=== PATIENT | female | born 1995 | race Caucasian/White ===

== ENCOUNTER 2017-03-30 15:49 | Emergency (ER) | payer MEDICAID ==
[~2017-03-30] VITALS: Ht 175.3 cm; Wt 54.4 kg
[~2017-03-30 15:49] MED LIST: AMOXICILLIN 50500 MG PO; AUGMENTIN 875-1 EACH PO; DICLEGIS1 TCP PO; FLINTSTONES M100 MCG PO; FLONASE 50 MCG16 GM; KEFLEX 500MG.500 MG PO; MEDROL 4MG. DOSE4 MG PO; MOTRIN 400MG.400 MG PO; NAPROXEN SODIU500 MG PO; NOMEDS XX; PHENERGAN 12.12.5 MG PR; PRILOSEC20 MG PO; TESSALON PERLE100 M1 PO
--- OUTSIDE RECORDS SUMMARY | 2017-03-30 15:57 | External Medical Summary Rpt ---
Author Author , MARIA ELENA DIALLEROY Address Unknown Phone [email or web address] Care Team Providers Care Vessel Engineer Name Role Phone FREDIS MCNEAL Unavailable Unavailable [facility] CLOUD Unavailable Unavailable CLOUD JOCELINE, CLOUD Unavailable Unavailable [facility] Un[facility], [facility], Unavailable Unavailable [facility], Unavailable Unavailable [facility] KEDING MOJGAN, KEDING Unavailable Unavailable MOJGAN [place] MOJGAN, KEDING Unavailable Unavailable MOJGAN [facility], [facility] LAILA LEAL, Unavailable Unavailable LAILA GOYAL, Unavailable Unavailable JAY JAY CROW, PILY Unavailable Unavailable MIGNON Purpose Continuity of Care Document - 12-16-2015 through 2016 Problems Code Diagnosis DOS Provider Status J029 ACUTE 11-22-2016 [facility] UNSPECIFIED 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[facility], NICOTINE PLL DEPENDENCE J111 FLU D/T 11-19-2016 [facility] UNIDENTIFIE PHYSICIAN D FLU VIRUS GROUP W/OTH RESP MANIF [id number] OTHER LONG 11-16-2016 [facility] TERM PHYSICIANS CURRENT GROUP DRUG THERAPY Z113 ENCOUNTER 09-20-2016 [facility] INFECTIONS SEXL MODE TRANSMISSN Z392 ENCOUNTER 09-20-2016 [facility]INE [facility] FOLLOW-UP [id number] ENCOUNTER 07-26-2016 [facility] INSERTION PHYSICIANS INTRAUTERIN GROUP E CONTRACEPT DEVC O80 ENCOUNTER 06-20-2016 [facility] FOR PHYSICIANS FULL-TERM GROUP UNCOMPLICAT ED DELIVERY Z370 SINGLE LIVE 06-20-2016 [facility] GROUP O6003 06-16-2016 [facility] WITHOUT INC DELIVERY THIRD TRIMESTER Z3A39 39 WEEKS 06-16-2016 [facility] OF INC Z3480 ENC 06-13-2016 [facility] SUPERVISION PHYSICIANS OT NORMAL GROUP PREG UNS TRIMESTER O211 HYPEREMESIS 06-09-2016 [facility] GRAVIDARUM PHYSICIANS GROUP W/METABOLIC DISTURBANCE U30161 OTHER SPEC 06-09-2016 [facility] RELATED INC COND 3RD TRIMESTER R112 NAUSEA WITH 06-09-2016 [facility] UNSPECIFIED INC Z3A38 38 WEEKS 06-09-2016 [facility] OF INC M545 LOW BACK 06-08-2016 [place] MOJGAN PAIN [id number] MAT CARE 05-25-2016 [facility] OTH PHYSICIANS KNWN/SUSP GROUP POOR FTL GRTH 3RD TRI UNS Z3A35 35 WEEKS 05-20-2016 [facility] OF INC O2693 04-28-2016 [facility] CONDITIONS INC UNS 3RD TRIMESTER O479 FALSE LABOR 04-28-2016 [facility] PHYSICIANS UNSPECIFIED GROUP R6889 OTHER 04-28-2016 [facility] SYMPTOMS INC AND SIGNS Z3A32 32 WEEKS 04-28-2016 [facility] OF INC [id number] DECREASED 04-11-2016 [facility] MOVEMENTS INC THIRD TRIMESTER NA/UNS R55 SYNCOPE AND 04-11-2016 [facility] COLLAPSE PHYSICIANS GROUP Z3A29 29 WEEKS 04-11-2016 [facility] OF INC O210 MILD 12-16-2015 [facility] GRAVIDARUM INC Z3A12 12 WEEKS 12-16-2015 [facility] OF INC J02.9 ACUTE PHARYNGITIS , UNSPECIFIED K52.9 NONINFECTIV E GASTROENTER ITIS AND COLITIS, UNSPECIFIED R10.9 UNSPECIFIED ABDOMINAL PAIN R11.2 NAUSEA WITH VOMITING, UNSPECIFIED Z33.1 STATE, INCIDENTAL Medications Na ND Rx Da Fi Fi Am Da Di Ph RX Ph St me C No te ll ll ou ys ag ar # ys at rm s nt no ma ic us Or Da si cy ia de te s n re d ME 59 05 06 21 6 00 ID Ac TH 74 -3 -3 .0 00 L- ti YL 60 0- 0- 00 07 MA ve MO 00 20 20 49 RT ED 10 17 17 04 NI 3 43 PH SO AR LO MA NE CY 4 #5 MG 91 DO SE PK AM 00 05 06 30 10 00 ID Ac OX 09 -3 -3 .0 00 L- ti IC 33 0- 0- 00 07 MA ve IL 10 20 20 49 RT LI 90 17 17 04 N 5 42 PH 50 AR 0 MA MG CY CA #5 PS 91 UL E CI 54 04 04 30 30 00 ID Ac TA 45 -0 -2 .0 00 L- ti LO 80 4- 8- 00 07 MA ve MO 98 20 20 46 RT AM 01 17 17 52 0 96 PH HB AR R MA 20 CY MG #5 91 TA BL ET BE 68 03 04 30 10 00 ID Ac NZ 38 -2 -1 .0 00 L- ti ON 20 07 MA ve AT 24 20 20 47 RT AT 70 17 17 75 E 1 85 PH 10 AR 0 MA MG CY CA #5 PS 91 UL E AM 00 03 04 20 10 00 ID Ac OX 78 -2 -1 .0 00 L- ti -C 11 07 MA ve LA 85 20 20 47 RT V 22 17 17 75 87 0 84 PH 5- AR 12 MA 5 CY MG #5 TA 91 BL ET OS 47 03 04 10 5 00 ID Ac EL 78 -1 -0 .0 00 L- ti TA 10 8- 7- 00 07 MA ve WI 47 20 20 47 RT 01 17 17 72 R 3 11 PH PH AR OS MA CY 75 #5 MG 91 CA PS UL E CI 54 02 03 30 30 00 ID Ac TA 45 -1 -1 .0 00 L- ti LO 80 6- 0- 00 07 MA ve MO 98 20 20 46 RT AM 01 17 17 52 0 96 PH HB AR R MA 20 CY MG #5 91 TA BL ET CI 54 01 02 30 30 00 ID Ac TA 45 -1 -1 .0 00 L- ti LO 80 7- 0- 00 07 MA ve MO 98 20 20 46 RT AM 01 17 17 52 0 96 PH HB AR R MA 20 CY MG #5 91 TA BL ET CI 54 12 01 30 30 00 ID Ac TA 45 -2 -1 .0 00 L- ti LO 80 0- 3- 00 07 MA ve MO 98 20 20 45 RT AM 11 16 17 98 2 15 PH HB AR R MA 10 CY MG #5 91 TA BL ET Procedures Procedure DOS Code Location Performer Comment SERVICES 50496 [facility] MIN[facility] PROVIDED 7 PHYSICIAN U BTW 10 S, PLLC PM&8 AM AT 24-HR FACI IAADIADOO 27237 [facility] STREPT[facility]O INC INC CCUS GROUP A IADNA 57590 [facility] CHLAMYDIA 7 LLC ER JR TRACHOMAT IS AMPLIFIED PROBE TQ CYTP C/V 01007 [facility] AUTO THIN 7 LLC ER JR LYR PREPJ SCR MNL RESCR PHYS IADNA 28938 [facility], [facility] NEISSERIA 7 LLC ER JR GONORRHOE AE AMPLIFIED PROBE TQ LEVONORGE J7297 [facility] PEDRO LUIS STREL-RLS 6 PHYSICIAN JOCELINE S GROUP INTRAUTER INE AVE SYS 52 MG URINE 09762 [facility] CLOUD 6 PHYSICIAN JOCELINE TEST S GROUP VISUAL COLOR CMPRSN METHS INSERTION 49634 [facility] CLOUD 6 PHYSICIAN JOCELINE INTRAUTER S GROUP INE DEVICE IUD NEURAXIAL 92143 [facility] LABOR 6 ANESTH MIGNON ANALG/ANE OF THE S PLND BLUE VAGINAL DELIVERY VAGINAL 23942 [facility] PEDRO LUIS DELIVERY 6 PHYSICIAN JOCELINE ONLY S GROUP W/POSTPAR AGNIESZKA CARE 09568 [facility] NONSTRESS 6 [facility] TEST INC INC 46889 [facility] PEDRO LUIS NONSTRESS 6 PHYSICIAN JOCELINE TEST S GROUP BLOOD 91544 [facility] COUNT 6 [facility] COMPLETE INC INC AUTO&[place] [address] [facility] INFUSION 6 [facility] HYDRATION INC INC INITIAL 31 MIN-1 HOUR BASIC 48875 [facility] METABOLIC 6 [facility] PANEL INC INC CALCIUM TOTAL APPL 63817 [facility] MODALITY 6 MOJGAN MOJGAN 1/> AREAS TRACTION MECHANICA L CHIROPRAC 04462 [facility] TIC 6 MOJGAN MOJGAN MANIPULAT [place] SPINAL 1-2 REGIONS CHIROPRAC 28176 [facility] [place] TIC 6 MOJGAN MOJGAN MANIPULAT [place] SPINAL 1-2 REGIONS APPL 23820 [facility] [place] MODALITY 6 MOJGAN MOJGAN 1/> AREAS TRACTION MECHANICA L 18881 [facility] PEDRO LUIS BIOPHYSIC 6 PHYSICIAN JOCELINE AL S GROUP PROFILE W/O NON-STRES S TESTING DOPPLER 80877 [facility] PEDRO LU[facility] VELOCIMET 6 PHYSICIAN JOCELINE RY S GROUP UMBILICAL ARTERY PARTICLE 04359 [facility] AGGLUTINA 6 [facility] TION INC INC SCREEN EACH ANTIBODY US PREG 44748 [facility] P[facility]RO [facility] UTERUS 6 PHYSICIAN JOCELINE REAL TIME S GROUP F/U TRNSABDL PER FETUS CULTURE 86125 [facility] BACTERIAL 6 [facility] INC INC QUANTTATI VE COLONY COUNT URINE URNLS DIP 01782 [facility] STICK/TAB INC INC LET REAGENT AUTO MICROSCOP Y 94526 [facility] NONSTRESS 6 [facility] TEST INC INC 51468 [facility] NONSTRESS 6 [facility] TEST INC INC URNLS DIP 16853 [facility] STICK/TAB INC INC LET REAGENT AUTO MICROSCOP Y CULTURE 08959 [facility] BACTERIAL 6 [facility] INC INC QUANTTATI VE COLONY COUNT URINE GLUC BLD 73246 [facility] GLUC MNTR 6 [facility] DEV INC INC CLEARED FDA SPEC HOME USE 86296 [facility] NONSTRESS 6 [place] [address] [facility] INFUSION 6 [facility] THERAPY/P INC INC ROPHYLAXI S /DX 1ST TO 1 HR Encounters Encounter Start End Date Code Location Performer Type Date EMERGENCY 18756 [facility] DEPARTMEN INC T VISIT LOW/MODER SEVERITY [facility] OUTPATIEN INC T EMERGENCY 62432 [facility] 7 7 PHYSICIAN U DEPARTMEN S, PLLC T VISIT MODERATE SEVERITY OFFICE 55230 [facility] FREDIS CRUZ 7 7 PHYSICIAN T VISIT GROUP 25 MINUTES OFFICE 77186 [facility] PEDRO LUIS CRUZ 7 7 PHYSICIAN T VISIT S GROUP 15 MINUTES [facility] OUTPATIEN INC T OFFICE 88459 [facility] 7 7 [facility] T NEW 10 INC MINUTES [facility] - 6 6 [facility] OUTPATIEN INC T OFFICE 38319 [facility] CLOUD OUTPATIEN 6 6 PHYSICIAN JOCELINE T VISIT S GROUP 15 MINUTES OFFICE 45450 [facility] CLOUD OUTPATIEN 6 6 PHYSICIAN JOCELINE T VISIT S GROUP 15 MINUTES [facility] 6 [facility] OUTPATIEN INC T OFFICE 53509 [facility] CLOUD OUTPATIEN 6 6 PHYSICIAN JOCELINE T VISIT S GROUP 15 MINUTES OFFICE 48023 [facility] 6 6 MOJGAN MOJGAN T NEW 10 MINUTES OFFICE 73823 [facility] CLOUD OUTPATIEN 6 6 PHYSICIAN JOCELINE T VISIT S GROUP 15 MINUTES [facility] OUTPATIEN INC T [facility] 6 [facility] OUTPATIEN INC T OFFICE 74633 [facility] CLOUD OUTPATIEN 6 6 PHYSICIAN JOCELINE T VISIT S GROUP 15 MINUTES [facility] - 6 6 [facility] OUTPATIEN INC T OFFICE 10686 [facility] CLOUD OUTPATIEN 6 6 PHYSICIAN JOCELINE T VISIT S GROUP 15 MINUTES OFFICE 81671 [facility] CL[facility]D OUTPATIEN 6 6 PHYSICIAN JOCELINE T VISIT S GROUP 15 MINUTES [facility] OUTPATIEN INC T [facility] OUTPATIEN INC T
--- OUTSIDE RECORDS SUMMARY | 2017-03-30 15:57 | External Medical Summary Rpt ---
Author Author , MARIA ELENA DIALLEROY Address Unknown Phone [email or web address] Care Team Providers Care Adjunct Lecturer Name Role Phone FREDIS MCNEAL Unavailable Unavailable [facility] Unavailable Unavailable CLOUD JOCELINE, CLOUD Unavailable Unavailable [facility] Un[facility] Un[facility] INC, [facility], Unavailable Unavailable [facility], Unavailable Unavailable [facility] KED[place] MOJGAN, KEDING Unavailable Unavailable [...] ACUTE 11-22-2016 [facility] UNSPECIFIED [id number] PERSONAL 11-22-2016 [facility]ANS, NICOTINE PLL DEPENDENCE J111 FLU D/T 11-19-2016 [facility] UNIDENTIFIE PHYSICIAN D FLU VIRUS GROUP W/OTH RESP MANIF R73292 OTHER LONG 11-16-2016 [facility] TERM PHYSICIANS CURRENT GROUP DRUG THERAPY Z113 ENCOUNTER 09-20-2016 [facility] INFECTIONS SEXL MODE TRANSMISSN Z392 ENCOUNTER 09-20-2016 [facility] FOLLOW-UP L92051 ENCOUNTER 07-26-2016 [facility] INSERTION PHYSICIANS INTRAUTERIN GROUP E CONTRACEPT DEVC O80 ENCOUNTER 06-20-2016 [facility] FOR PHYSICIANS FULL-TERM GROUP UNCOMPLICAT ED DELIVERY Z370 SINGLE LIVE 06-20-2016 [facility]ANS GROUP O6003 06-16-2016 [facility] WITHOUT INC DELIVERY THIRD TRIMESTER Z3A39 39 WEEKS 06-16-2016 [facility] OF INC Z3480 ENC 06-13-2016 [facility] SUPERVISION PHYSICIANS OT NORMAL GROUP PREG UNS TRIMESTER O211 HYPEREMESIS 06-09-2016 [facility] GRAVIDARUM PHYSICIANS GROUP W/METABOLIC DISTURBANCE T48446 OTHER SPEC 06-09-2016 [facility] RELATED INC COND 3RD TRIMESTER R112 NAUSEA WITH 06-09-2016 [facility] UNSPECIFIED INC Z3A38 38 WEEKS 06-09-2016 [facility] OF INC M545 LOW BACK 06-08-2016 [place] MO[facility]GAN PAIN B076256 MAT CARE 05-25-2016 [facility] OTH PHYSICIANS KNWN/SUSP GROUP POOR FTL GRTH 3RD TRI UNS Z3A35 35 WEEKS 05-20-2016 [facility] OF INC O2693 04-28-2016 [facility] CONDITIONS INC UNS 3RD TRIMESTER O479 FALSE LABOR 04-28-2016 [facility] PHYSICIANS UNSPECIFIED GROUP R6889 OTHER 04-28-2016 [facility] SYMPTOMS INC AND SIGNS Z3A32 32 WEEKS 04-28-2016 [facility] OF INC [id number] DECREASED 04-11-2016 [facility] MOVEMENTS INC THIRD TRIMESTER NA/UNS R55 SYNCOPE AND 04-11-2016 [facility] COLLAPSE PHYSICIANS GROUP Z3A29 29 WEEKS 04-11-2016 [...] ME 59 05 06 21 6 00 AZ Ac TH 74 -3 -3 .0 00 L- ti YL 60 0- 0- 00 07 MA ve ME 00 20 20 49 RT ED 10 17 17 04 NI 3 43 PH SO AR LO MA NE CY 4 #5 MG 91 DO SE PK AM 00 05 06 30 10 00 AZ Ac OX 09 -3 -3 .0 00 L- ti IC 33 0- 0- 00 07 MA ve IL 10 20 20 49 RT LI 90 17 17 04 N 5 42 PH 50 AR 0 MA MG CY CA #5 PS 91 UL E CI 54 04 04 30 30 00 AZ Ac TA 45 -0 -2 .0 00 L- ti LO 80 4- 8- 00 07 MA ve ME 98 20 20 46 RT AM 01 17 17 52 0 96 PH HB AR R MA 20 CY MG #5 91 TA BL ET BE 68 03 04 30 10 00 AZ Ac NZ 38 -2 -1 .0 00 L- ti ON 20 07 MA ve AT 24 20 20 47 RT AT 70 17 17 75 E 1 85 PH 10 AR 0 MA MG CY CA #5 PS 91 UL E AM 00 03 04 20 10 00 AZ Ac OX 78 -2 -1 .0 00 L- ti -C 11 07 MA ve LA 85 20 20 47 RT V 22 17 17 75 87 0 84 PH 5- AR 12 MA 5 CY MG #5 TA 91 BL ET OS 47 03 04 10 5 00 AZ Ac EL 78 -1 -0 .0 00 L- ti TA 10 8- 7- 00 07 MA ve WI 47 20 20 47 RT 01 17 17 72 R 3 11 PH PH AR OS MA CY 75 #5 MG 91 CA PS UL E CI 54 02 03 30 30 00 AZ Ac TA 45 -1 -1 .0 00 L- ti LO 80 6- 0- 00 07 MA ve ME 98 20 20 46 RT AM 01 17 17 52 0 96 PH HB AR R MA 20 CY MG #5 91 TA BL ET CI 54 01 02 30 30 00 AZ Ac TA 45 -1 -1 .0 00 L- ti LO 80 7- 0- 00 07 MA ve ME 98 20 20 46 RT AM 01 17 17 52 0 96 PH HB AR R MA 20 CY MG #5 91 TA BL ET CI 54 12 01 30 30 00 AZ Ac TA 45 -2 -1 .0 00 L- ti LO 80 0- 3- 00 07 MA ve ME 98 20 20 45 RT AM 11 16 17 98 2 15 PH HB AR R MA 10 CY MG #5 91 TA BL ET Procedures Procedure DOS Code Location Performer Comment SERVICES 66439 [facility] PROVIDED 7 PHYSICIAN U BTW 10 S, PLLC PM&8 AM AT 24-HR FACI IAADIADOO 66932 [facility] STREPT[facility] INC INC CCUS GROUP A IADNA 92927 [facility] 7 LLC ER JR TRACHOMAT IS AMPLIFIED PROBE TQ CYTP C/V 30684 [facility] AUT[facility] THIN 7 LLC ER JR LYR PREPJ SCR MNL RESCR PHYS IADNA 72077 [facility], [facility] NEISSERIA 7 LLC ER JR GONORRHOE AE AMPLIFIED PROBE TQ LEVONORGE J7297 [facility] P[facility]RO LU[facility] STREL-RLS 6 PHYSICIAN JOCELINE S GROUP INTRAUTER INE AVE SYS 52 MG URINE 54974 [facility] CLOUD 6 PHYSICIAN JOCELINE TEST S GROUP VISUAL COLOR CMPRSN METHS INSERTION 11173 [facility] CLOUD 6 PHYSICIAN JOCELINE INTRAUTER S GROUP INE DEVICE IUD NEURAXIAL 36869 [facility] LABOR 6 ANESTH MIGNON ANALG/ANE OF THE S PLND BLUE VAGINAL DELIVERY VAGINAL 99188 [facility] DELIVERY 6 PHYSICIAN JOCELINE ONLY S GROUP W/POSTPAR AGNIESZKA CARE 45508 [facility] NONSTRESS 6 [facility] TEST INC INC 05875 [facility] NONSTRESS 6 PHYSICIAN JOCELINE TEST S GROUP BLOOD 40527 [facility] COUNT 6 [facility] COMPLETE INC INC AUTO&[place] [address] [facility] INFUSION 6 [facility] HYDRATION INC INC INITIAL 31 MIN-1 HOUR BASIC 05502 [facility] METABOLIC 6 [facility] PANEL INC INC CALCIUM TOTAL APPL 10983 [facility] MODALITY 6 MOJGAN MOJGAN 1/> AREAS TRACTION MECHANICA L CHIROPRAC 30318 [facility] TIC 6 MOJGAN MOJGAN MANIPULAT [place] SPINAL 1-2 REGIONS CHIROPRAC 46951 [facility] TIC 6 MOJGAN MOJGAN MANIPULAT [place] SPINAL 1-2 REGIONS APPL 47258 [facility] [place] MODALITY 6 MOJGAN MOJGAN 1/> AREAS TRACTION MECHANICA L 29671 [facility] BIOPHYSIC 6 PHYSICIAN JOCELINE AL S GROUP PROFILE W/O NON-STRES S TESTING DOPPLER 19184 [facility] VELOCIMET 6 PHYSICIAN JOCELINE RY S GROUP UMBILICAL ARTERY PARTICLE 65494 [facility] AGGLUTINA 6 [facility] TION INC INC SCREEN EACH ANTIBODY US PREG 59316 [facility] UTERUS 6 PHYSICIAN JOCELINE REAL TIME S GROUP F/U TRNSABDL PER FETUS CULTURE 15832 [facility] BACTERIAL [facility] INC INC QUANTTATI VE COLONY COUNT URINE URNLS DIP 96224 [facility] STICK/TAB INC INC LET REAGENT AUTO MICROSCOP Y 96159 [facility] NONSTRESS 6 [facility] TEST INC INC 62069 [facility] NONSTRESS 6 [facility] TEST INC INC URNLS DIP 66937 [facility] STICK/TAB INC INC LET REAGENT AUTO MICROSCOP Y CULTURE 45661 [facility] BACTERIAL 6 [facility] INC INC QUANTTATI VE COLONY COUNT URINE GLUC BLD 97669 [facility] GLUC MNTR 6 [facility] DEV INC INC CLEARED FDA SPEC HOME USE 59236 [facility] NONSTRESS 6 [place] [address] [facility] INFUSION 6 [facility] THERAPY/P INC INC ROPHYLAXI S /DX 1ST TO 1 HR Encounters Encounter Start End Date Code Location Performer Type Date EMERGENCY 02134 [facility] DEPARTMEN INC T VISIT LOW/MODER SEVERITY [facility] OUTPATIEN INC T EMERGENCY 77024 [facility] 7 7 PHYSICIAN U DEPARTMEN S, PLLC T VISIT MODERATE SEVERITY OFFICE 40573 [facility] FREDIS CRUZ 7 7 PHYSICIAN T VISIT GROUP 25 MINUTES OFFICE 59661 [facility] P[facility]RO LU[facility] CRUZ 7 7 PHYSICIAN T VISIT S GROUP 15 MINUTES [facility] OUTPATIEN INC T OFFICE 12939 [facility] 7 7 [facility] T NEW 10 INC MINUTES [facility] 6 6 [facility] OUTPATIEN INC T OFFICE 04772 [facility] OUTPATIEN 6 6 PHYSICIAN JOCELINE T VISIT S GROUP 15 MINUTES OFFICE 98745 [facility] OUTPATIEN 6 6 PHYSICIAN JOCELINE T VISIT S GROUP 15 MINUTES [facility] OUTPATIEN INC T OFFICE 41803 [facility] OUTPATIEN 6 6 PHYSICIAN JOCELINE T VISIT S GROUP 15 MINUTES OFFICE 44763 [facility] MOJGAN MOJGAN T NEW 10 MINUTES OFFICE 58427 [facility] OUTPATIEN 6 6 PHYSICIAN JOCELINE T VISIT S GROUP 15 MINUTES [facility] OUTPATIEN INC T [facility] 6 6 [facility] OUTPATIEN INC T OFFICE 01440 [facility] OUTPATIEN 6 6 PHYSICIAN JOCELINE T VISIT S GROUP 15 MINUTES [facility] - 6 6 [facility] OUTPATIEN INC T OFFICE 60044 [facility] OUTPATIEN 6 6 PHYSICIAN JOCELINE T VISIT S GROUP 15 MINUTES OFFICE 98088 [facility] OUTPATIEN 6 6 PHYSICIAN JOCELINE T VISIT S GROUP 15 MINUTES [facility] OUTPATIEN INC T [facility] 6 [facility] OUTPATIEN INC T
--- OUTSIDE RECORDS SUMMARY | 2017-03-30 15:58 | External Medical Summary Rpt ---
Demographics Preferred Language Sami Marital Status Unknown Orthodox Affiliation Unknown Race Unknown Ethnic Group Unknown Author Author , MARIA ELENA ARREDONDO Address Unknown Phone maria Immunization Unable to retrieve immunization data due to connection failure with Immunization Registry. Please try again later.
--- OUTSIDE RECORDS SUMMARY | 2017-03-30 15:58 | External Medical Summary Rpt ---
Author Author , MARIA ELENA ARREDONDO Address Unknown Phone [email or web address] Care Team Providers Care Blueprinting And Photocopy Supervisor Name Role Phone FREDIS MCNEAL Unavailable Unavailable PEDRO LUIS CLOUD Unavailable Unavailable PEDRO LUIS JOCELINE, CLOUD Unavailable Unavailable JOCELINE HARPEL BETTINA, HARPEL Unavailable Unavailable BETTINA [facility], Unavailable Unavailable [facility], Unavailable Unavailable [facility] [place] MOJGAN, KEDING [...] ACUTE 11-22-2016 [facility] UNSPECIFIED [id number] PERSONAL 11-22-2016 [facility] DEPENDENCE J111 FLU D/T 11-19-2016 [facility] UNIDENTIFIE PHYSICIAN D FLU VIRUS GROUP W/OTH RESP MANIF [id number] OTHER LONG 11-16-2016 [facility] TERM PHYSICIANS CURRENT GROUP DRUG THERAPY Z113 ENCOUNTER 09-20-2016 [facility] INFECTIONS SEXL MODE TRANSMISSN Z392 ENCOUNTER 09-20-2016 [facility] FOLLOW-UP [id number] ENCOUNTER 07-26-2016 [facility] INSERTION PHYSICIANS INTRAUTERIN GROUP E CONTRACEPT DEVC O80 ENCOUNTER 06-20-2016 [facility] FOR PHYSICIANS FULL-TERM GROUP UNCOMPLICAT ED DELIVERY Z370 SINGLE LIVE 06-20-2016 [facility]YSICIANS GROUP O6003 06-16-2016 [facility] WITHOUT INC DELIVERY THIRD TRIMESTER Z3A39 39 WEEKS 06-16-2016 [facility] OF INC Z3480 ENC 06-13-2016 [facility] SUPERVISION PHYSICIANS OT NORMAL GROUP PREG UNS TRIMESTER O211 HYPEREMESIS 06-09-2016 [facility] GRAVIDARUM PHYSICIANS GROUP W/METABOLIC DISTURBANCE [id number] OTHER SPEC 06-09-2016 [facility] RELATED INC COND 3RD TRIMESTER R112 NAUSEA WITH 06-09-2016 [facility] UNSPECIFIED INC Z3A38 38 WEEKS 06-09-2016 [facility] OF INC M545 LOW BACK 06-08-2016 [place] MOJGAN PAIN [id number] MAT CARE 05-25-2016 [facility] OT PHYSICIANS KNWN/SUSP GROUP POOR FTL GRTH 3RD TRI UNS Z3A35 35 WEEKS 05-20-2016 [facility] OF INC O2693 04-28-2016 [facility] CONDITIONS INC UNS 3RD TRIMESTER O479 FALSE LABOR 04-28-2016 [facility] PHYSICIANS UNSPECIFIED GROUP R6889 OTHER 04-28-2016 [facility] SYMPTOMS INC AND SIGNS Z3A32 32 WEEKS 04-28-2016 [facility] INC [id number] DECREASED 04-11-2016 [facility] MOVEMENTS INC THIRD TRIMESTER NA/UNS R55 SYNCOPE AND 04-11-2016 [facility] COLLAPSE PHYSICIANS GROUP Z3A29 29 WEEKS 04-11-2016 [facility] O210 MILD 12-16-2015 [facility] GRAVIDARUM INC Z3A12 12 WEEKS 12-16-2015 [facility] Medications Na ND Rx Da Fi Fi Am Da Di Ph RX Ph St me C No te ll ll ou ys ag ar # ys at rm s nt no ma ic us Or Da si cy ia de te s n re d ME 59 05 06 21 6 00 NH Ac TH 74 -3 -3 .0 00 L- ti YL 60 0- 0- 00 07 MA ve MT 00 20 20 49 RT ED 10 17 17 04 NI 3 43 PH SO AR LO MA NE CY 4 #5 MG 91 DO SE PK AM 00 05 06 30 10 00 WA Ac OX 09 -3 -3 .0 00 L- ti IC 33 0- 0- 00 07 MA ve IL 10 20 20 49 RT LI 90 17 17 04 N 5 42 PH 50 AR 0 MA MG CY CA #5 PS 91 UL E CI 54 04 04 30 30 00 NH Ac TA 45 -0 -2 .0 00 L- ti LO 80 4- 8- 00 07 MA ve MT 98 20 20 46 RT AM 01 17 17 52 0 96 PH HB AR R MA 20 CY MG #5 91 TA BL ET BE 68 03 04 30 10 00 NH Ac NZ 38 -2 -1 .0 00 L- ti ON 20 1 07 MA ve AT 24 20 20 47 RT AT 70 17 17 75 E 1 85 PH 10 AR 0 MA MG CY CA #5 PS 91 UL E AM 00 03 04 20 10 00 NH Ac OX 78 -2 -1 .0 00 L- ti -C 11 4- 07 MA ve LA 85 20 20 47 RT V 22 17 17 75 87 0 84 PH 5- AR 12 MA 5 CY MG #5 TA 91 BL ET OS 47 03 04 10 5 00 NH Ac EL 78 -1 -0 .0 00 L- ti TA 10 8- 7- 00 07 MA ve ID 47 20 20 47 RT 01 17 17 72 R 3 11 PH PH AR OS MA CY 75 #5 MG 91 CA PS UL E CI 54 02 03 30 30 00 NH Ac TA 45 -1 -1 .0 00 L- ti LO 80 6- 0- 00 07 MA ve MT 98 20 20 46 RT AM 01 17 17 52 0 96 PH HB AR R MA 20 CY MG #5 91 TA BL ET CI 54 01 02 30 30 00 NH Ac TA 45 -1 -1 .0 00 L- ti LO 80 7- 0- 00 07 MA ve MT 98 20 20 46 RT AM 01 17 17 52 0 96 PH HB AR R MA 20 CY MG #5 91 TA BL ET CI 54 12 01 30 30 00 NH Ac TA 45 -2 -1 .0 00 L- ti LO 80 0- 3- 00 07 MA ve MT 98 20 20 45 RT AM 11 16 17 98 2 15 PH HB AR R MA 10 CY MG #5 91 TA BL ET Procedures Procedure DOS Code Location Performer Comment SERVICES 64930 [facility] MINER PROVIDED 7 PHYSICIAN U BTW 10 S, PLLC PM&8 AM AT 24-HR FACI IAADIADOO 86930 [facility] INC INC CCUS GROUP A IADNA 12903 [facility] CHLAMYDIA 7 LLC ER JR TRACHOMAT IS AMPLIFIED PROBE TQ CYTP C/V 75111 [facility] AUTO THIN 7 LLC ER JR LYR PREPJ SCR MNL RESCR PHYS IADNA 89438 [facility] NEISSERIA 7 LLC ER JR GONORRHOE AE AMPLIFIED PROBE TQ INSERTION 42117 [facility] PEDRO LUIS 6 PHYSICIAN JOCELINE INTRAUTER S GROUP INE DEVICE IUD URINE 95086 [facility] PEDRO LUIS 6 PHYSICIAN JOCELINE TEST S GROUP VISUAL COLOR CMPRSN METHS LEVONORGE J7297 [facility] CLOUD STREL-RLS 6 PHYSICIAN JOCELINE S GROUP INTRAUTER INE AVE SYS 52 MG VAGINAL 97183 [facility]D DELIVERY 6 PHYSICIAN JOCELINE ONLY S GROUP W/POSTPAR AGNIESZKA CARE NEURAXIAL 84726 [facility] LABOR 6 ANESTH MIGNON ANALG/ANE OF THE S PLND BLUE VAGINAL DELIVERY 42922 [facility] NONSTRESS [facility] TEST INC INC BLOOD 17989 [facility] COUNT 6 [facility] COMPLETE INC INC AUTO&AUTO DIFRNTL WBC BASIC 47139 [facility] METABOLIC 6 [facility] PANEL INC INC CALCIUM TOTAL 09618 [facility] NONSTRESS 6 [place] [address] [facility] INFUSION 6 [facility] HYDRATION INC INC INITIAL 31 MIN-1 HOUR APPL 40524 [facility] MODALITY 6 MOJGAN MOJGAN 1/> AREAS TRACTION MECHANICA L CHIROPRAC 53666 [facility] [place] TIC 6 MOJGAN MOJGAN MANIPULAT [place] SPINAL 1-2 REGIONS CHIROPRAC 93708 [place] TIC 6 MOJGAN MOJGAN MANIPULAT [place] SPINAL 1-2 REGIONS APPL 87761 [facility] [place] MODALITY 6 MOJGAN MOJGAN 1/> AREAS TRACTION MECHANICA L 80986 [facility] CLOUD BIOPHYSIC 6 PHYSICIAN JOCELINE AL S GROUP PROFILE W/O NON-STRES S TESTING US PREG 42934 [facility] CLOUD UTERUS 6 PHYSICIAN JOCELINE REAL TIME S GROUP F/U TRNSABDL PER FETUS PARTICLE 23770 [facility] AGGLUTINA 6 [facility] TION INC INC SCREEN EACH ANTIBODY DOPPLER 01403 [facility] PEDRO LUIS VELOCIMET 6 PHYSICIAN JOCELINE RY S GROUP UMBILICAL ARTERY 51820 [facility] NONSTRESS 6 [facility] TEST INC INC CULTURE 01933 [facility] BACTERIAL 6 [facility] INC INC QUANTTATI VE COLONY COUNT URINE URNLS DIP 70924 [facility] STICK/TAB INC INC LET REAGENT AUTO MICROSCOP Y URNLS DIP 79068 [facility] STICK/TAB INC INC LET REAGENT AUTO MICROSCOP Y 47934 [facility] CLOUD NONSTRESS 6 PHYSICIAN JOCELINE TEST S GROUP CULTURE 55221 [facility] BACTERIAL 6 [facility] INC INC QUANTTATI VE COLONY COUNT URINE 36852 [facility] HARPEL NONSTRESS 6 PHYSICIAN BETTINA TEST S GROUP GLUC BLD 31109 [facility] GLUC MNTR 6 [facility] DEV [place] [address] [facility] INFUSION 6 [facility] THERAPY/P INC INC ROPHYLAXI S /DX 1ST TO 1 HR Encounters Encounter Start End Date Code Location Performer Type Date EMERGENCY 20989 [facility] 7 [facility] L[facility]/MODER SEVERITY [facility]PAT[facility]EN INC T EMERGENCY 38794 [facility] MINER 7 7 PHYSICIAN U [facility], [facility] T VISIT MODERATE SEVERITY OFFICE 31523 [facility] FREDIS CRUZ 7 7 PHYSICIAN T VISIT GROUP 25 MINUTES OFFICE 50436 [facility] PEDRO LUIS OUTKADE 7 7 PHYSICIAN T VISIT S GROUP 15 MINUTES OFFICE 71242 [facility] CRUZ 7 7 [facility] T NEW 10 INC MINUTES [facility]OSPITAL [facility] - 7 7 [facility] OUTPATIEN INC T [facility] - 6 6 [facility] OUTPATIEN INC T OFFICE 28529 [facility] CLOUD OUTPATIEN 6 6 PHYSICIAN JOCELINE T VISIT S GROUP 15 MINUTES OFFICE 28140 [facility] CLOUD OUTPATIEN 6 6 PHYSICIAN JOCELINE T VISIT S GROUP 15 MINUTES HOSPITAL [facility] - 6 6 [facility] OUTPATIEN INC T OFFICE 56006 [facility] CLOUD OUTPATIEN 6 6 PHYSICIAN JOCELINE T VISIT S GROUP 15 MINUTES OFFICE 45917 [facility] OUT[facility]IEN 6 6 MOJGAN MO[facility] 10 MINUTES OFFICE 86429 [facility] CLOUD OUTPATIEN 6 6 PHYSICIAN JOCELINE T VISIT S GROUP 15 MINUTES [facility]OSPITAL [facility] - 6 6 [facility] OUTPAT[facility]EN [facility] - 6 6 [facility] OUTPATIEN INC T OFFICE 95305 [facility] CLOUD OUTPATIEN 6 6 PHYSICIAN JOCELINE T VISIT S GROUP 15 MINUTES [facility]OSPITAL [facility] - 6 6 [facility] OUTPATIEN INC T OFFICE 36980 [facility] CLOUD OUTPATIEN 6 6 PHYSICIAN JOCELINE T VISIT S GROUP 15 MINUTES OFFICE 84563 [facility] CLOUD OUTPATIEN 6 6 PHYSICIAN JOCELINE T VISIT S GROUP 15 MINUTES [facility] - [facility] - 6 6 [facility] OUTPATIEN INC T
--- OUTSIDE RECORDS SUMMARY | 2017-03-30 15:58 | External Medical Summary Rpt ---
Author Author , MARIA ELENA ARREDONDO Address Unknown Phone [email or web address] Care Team Providers Care Licensed Practical Vocational Nurse Name Role Phone FREDIS MCNEAL Unavailable Unavailable PEDRO LUIS CLOUD Unavailable Unavailable PEDRO LUIS JOCELINE, CLOUD Unavailable Unavailable JOCELINE HARPEL BETTINA, HARPEL Unavailable Unavailable BETTINA [facility] Un[facility] Un[facility] INC, [facility], Unavailable Unavailable [facility], Unavailable Unavailable [facility] KEDING MOJGAN, KEDING Unavailable Unavailable MOJGAN KEDING MOJGAN, KEDING Unavailable Unavailable MOJGAN [facility] Un[facility], [facility] LAILA LEAL, Unavailable Unavailable LAILA GOYAL, Unavailable Unavailable JAY JAY RCOW, PILY Unavailable Unavailable MIGNON Purpose Continuity of Care Document - 12-16-2015 through 2016 Problems Code Diagnosis DOS Provider Status J029 ACUTE 11-22-2016 [facility] UNSPECIFIED [id number] PERSONAL 11-22-2016 [facility] DEPENDENCE J111 FLU D/T 11-19-2016 [facility] UNIDENTIFIE PHYSICIAN D FLU VIRUS GROUP W/OTH RESP MANIF U18426 OTHER LONG 11-16-2016 [facility] TERM PHYSICIANS CURRENT GROUP DRUG THERAPY Z113 ENCOUNTER 09-20-2016 [facility] INFECTIONS SEXL MODE TRANSMISSN Z392 ENCOUNTER 09-20-2016 [facility] FOLLOW-UP S72871 ENCOUNTER 07-26-2016 [facility] INSERTION PHYSICIANS INTRAUTERIN GROUP E CONTRACEPT DEVC O80 ENCOUNTER 06-20-2016 [facility] FOR [facility]ANS FULL-TERM GROUP UNCOMPLICAT ED DELIVERY Z370 SINGLE LIVE 06-20-2016 [facility] PHYSICIANS GROUP O6003 06-16-2016 [facility] WITHOUT INC DELIVERY THIRD TRIMESTER Z3A39 39 WEEKS 06-16-2016 [facility] OF INC Z3480 ENC 06-13-2016 [facility] SUPERVISION PHYSICIANS OT NORMAL GROUP PREG UNS TRIMESTER O211 HYPEREMESIS 06-09-2016 [facility] GRAVIDARUM PHYSICIANS GROUP W/METABOLIC DISTURBANCE N85090 OTHER SPEC 06-09-2016 [facility] RELATED INC COND 3RD TRIMESTER R112 NAUSEA WITH 06-09-2016 [facility] UNSPECIFIED INC Z3A38 38 WEEKS 06-09-2016 [facility] OF INC M545 LOW BACK 06-08-2016 [place] MO[facility] PAIN [id number] MAT CARE 05-25-2016 [facility] OT PHYSICIANS KNWN/SUSP GROUP POOR FTL GRTH 3RD TRI UNS Z3A35 35 WEEKS 05-20-2016 [facility] OF INC O2693 04-28-2016 [facility] CONDITIONS INC UNS 3RD TRIMESTER O479 FALSE LABOR 04-28-2016 [facility] PHYS[facility]IANS UNSPECIFIED GROUP R6889 OTHER 04-28-2016 [facility] SYMPTOMS INC AND SIGNS Z3A32 32 WEEKS 04-28-2016 [facility] OF INC [id number] DECREASED 04-11-2016 [facility] MOVEMENTS INC THIRD TRIMESTER NA/UNS R55 SYNCOPE AND 04-11-2016 [facility] COLLAPSE PHYSICIANS GROUP Z3A29 29 WEEKS [...] ME 59 05 06 21 6 00 MA Ac TH 74 -3 -3 .0 00 L- ti YL 60 0- 0- 00 07 MA ve OK 00 20 20 49 RT ED 10 [...] CI 54 04 04 30 30 00 MA Ac TA 45 -0 -2 .0 00 L- ti LO 80 4- 8- 00 07 MA ve OK 98 20 20 46 RT AM 01 17 17 52 0 96 PH HB AR R MA 20 CY MG #5 91 TA BL ET BE 68 03 04 30 10 00 MA Ac NZ 38 -2 -1 .0 00 L- ti ON 20 1 07 MA ve AT 24 20 20 47 RT AT 70 17 17 75 E 1 85 PH 10 AR 0 MA MG CY CA #5 PS 91 UL E AM 00 03 04 20 10 00 MA Ac OX 78 -2 -1 .0 00 L- ti -C 11 4- 07 MA ve LA 85 20 20 47 RT V 22 17 17 75 87 0 84 PH 5- AR 12 MA 5 CY MG #5 TA 91 BL ET OS 47 03 04 10 5 00 MA Ac EL 78 -1 -0 .0 00 L- ti TA 10 8- 7- 00 07 MA ve ID 47 20 20 47 RT 01 17 17 72 R 3 11 PH PH AR OS MA CY 75 #5 MG 91 CA PS UL E CI 54 02 03 30 30 00 MA Ac TA 45 -1 -1 .0 00 L- ti LO 80 6- 0- 00 07 MA ve OK 98 20 20 46 RT AM 01 17 17 52 0 96 PH HB AR R MA 20 CY MG #5 91 TA BL ET CI 54 01 02 30 30 00 MA Ac TA 45 -1 -1 .0 00 L- ti LO 80 7- 0- 00 07 MA ve OK 98 20 20 46 RT AM 01 17 17 52 0 96 PH HB AR R MA 20 CY MG #5 91 TA BL ET CI 54 12 01 30 30 00 MA Ac TA 45 -2 -1 .0 00 L- ti LO 80 0- 3- 00 07 MA ve OK 98 20 20 45 RT AM 11 16 17 98 2 15 PH HB AR R MA 10 CY MG #5 91 TA BL ET Procedures Procedure DOS Code Location Performer Comment SERVICES 68162 [facility] MINER PROVIDED 7 PHYSICIAN U BTW 10 S, PLLC PM&8 AM AT 24-HR FACI IAADIADOO 75152 [facility] INC INC CCUS GROUP A IADNA 66932 [facility] ER JR TRACHOMAT IS AMPLIFIED PROBE TQ CYTP C/V 89118 [facility] 7 LLC ER JR LYR PREPJ SCR MNL RESCR PHYS IADNA 00675 [facility], [facility] 7 LLC ER JR GONORRHOE AE AMPLIFIED PROBE TQ INSERTION 58779 [facility] PEDRO LUIS 6 PHYSICIAN JOCELINE INTRAUTER S GROUP INE DEVICE IUD URINE 48001 [facility] PEDRO LUIS 6 PHYSICIAN JOCELINE TEST S GROUP VISUAL COLOR CMPRSN METHS LEVONORGE J7297 [facility] CLOUD STREL-RLS 6 PHYSICIAN JOCELINE S GROUP INTRAUTER INE AVE SYS 52 MG VAGINAL 44493 [facility] DELIVERY 6 PHYSICIAN JOCELINE ONLY S GROUP W/POSTPAR AGNIESZKA CARE NEURAXIAL 66114 [facility] 6 ANESTH MIGNON ANALG/ANE OF THE S PLND BLUE VAGINAL DELIVERY 41765 [facility] NONSTRESS [facility] TEST INC INC BLOOD 70078 [facility] COUNT 6 [facility] COMPLETE INC INC AUTO&AUTO DIFRNTL WBC BASIC 86846 [facility] METABOLIC 6 [facility] PANEL INC INC CALCIUM TOTAL 90111 [facility] NONSTRESS 6 [place] [address] [facility] INFUSION 6 [facility] HYDRATION INC INC INITIAL 31 MIN-1 HOUR APPL 06324 [facility] MODALITY 6 MOJGAN MOJGAN 1/> AREAS TRACTION MECHANICA L CHIROPRAC 70443 [facility] [place] TIC 6 MOJGAN MOJGAN MANIPULAT [place] SPINAL 1-2 REGIONS CHIROPRAC 31364 [place] TIC 6 MOJGAN MOJGAN MANIPULAT [place] SPINAL 1-2 REGIONS APPL 27374 [facility] [place] MODALITY 6 MOJGAN MOJGAN 1/> AREAS TRACTION MECHANICA L 69944 [facility] CL[facility]D BIOPHYSIC 6 PHYSICIAN JOCELINE AL S GROUP PROFILE W/O NON-STRES S TESTING US PREG 16315 [facility] UTERUS 6 PHYSICIAN JOCELINE REAL TIME S GROUP F/U TRNSABDL PER FETUS PARTICLE 37820 [facility] AGGLUTINA 6 [facility] TION INC INC SCREEN EACH ANTIBODY DOPPLER 25825 [facility] P[facility] LUIS VELOCIMET 6 PHYSICIAN JOCELINE RY S GROUP UMBILICAL ARTERY 45071 [facility] NONSTRESS 6 [facility] TEST INC INC CULTURE 16728 [facility] BACTERIAL 6 [facility] INC INC QUANTTATI VE COLONY COUNT URINE URNLS DIP 65997 [facility] STICK/TAB INC INC LET REAGENT AUTO MICROSCOP Y URNLS DIP 72838 [facility] STICK/TAB INC INC LET REAGENT AUTO MICROSCOP Y 21572 [facility] CLOUD NONSTRESS 6 PHYSICIAN JOCELINE TEST S GROUP CULTURE 25568 [facility] BACTERIAL 6 [facility] INC INC QUANTTATI VE COLONY COUNT URINE 15472 [facility] HARPEL NONSTRESS 6 PHYSICIAN BETTINA TEST S GROUP GLUC BLD 83572 [facility] GLUC MNTR 6 [facility] DEV [place] [address] [facility] INFUSION 6 [facility] THERAPY/P INC INC ROPHYLAXI S /DX 1ST TO 1 HR Encounters Encounter Start End Date Code Location Performer Type Date EMERGENCY 74227 [facility] 7 7 [facility] L[facility]MODER SE[facility]ITY [facility] - 7 7 [facility] OUTPATIEN INC T EMERGENCY 85316 [facility] MINER 7 7 PHYSICIAN U [facility] T VISIT MODERATE SEVERITY OFFICE 61239 [facility] FREDIS CRUZ 7 7 PHYSICIAN T VISIT GROUP 25 MINUTES OFFICE 40001 [facility] PEDRO LUIS OUTKADE 7 7 PHYSICIAN T VISIT S GROUP 15 MINUTES OFFICE 72425 [facility] CRUZ 7 7 [facility] T NEW 10 INC MINUTES [facility]OSP[facility] - 7 7 [facility] OUTPATIEN INC T [facility] - 6 6 [facility] OUTPATIEN INC T OFFICE 43528 [facility] CLOUD OUTPATIEN 6 6 PHYSICIAN JOCELINE T VISIT S GROUP 15 MINUTES OFFICE 18160 [facility] CL[facility]D OUTPATIEN 6 6 PHYSICIAN JOCELINE T VISIT S GROUP 15 MINUTES [facility]OSPITAL [facility] - 6 6 [facility] OUTPATIEN INC T OFFICE 84871 [facility] CL[facility]D OUTPATIEN 6 6 PHYSICIAN JOCELINE T VISIT S GROUP 15 MINUTES OFFICE 47388 [facility] OUT[facility] 6 6 MOJGAN MOJGAN [facility] 10 MINUTES OFFICE 45641 [facility] CLOUD OUTPATIEN 6 6 PHYSICIAN JOCELINE T VISIT S GROUP 15 MINUTES [facility]OSPITAL [facility] - 6 6 [facility]EN [facility] - 6 6 [facility] OUTPATIEN INC T OFFICE 72214 [facility] CLOUD OUTPATIEN 6 6 PHYSICIAN JOCELINE T VISIT S GROUP 15 MINUTES [facility]OSPITAL [facility] - 6 6 [facility] OUTPATIEN INC T OFFICE 48047 [facility] CL[facility]D OUTPATIEN 6 6 PHYSICIAN JOCELINE T VISIT S GROUP 15 MINUTES OFFICE 01944 [facility] CL[facility]D OUTPATIEN 6 6 PHYSICIAN JOCELINE T VISIT S GROUP 15 MINUTES [facility]OSPITAL [facility] - 6 6 [facility] OUTPATIEN INC [facility] - 6 6 [facility] OUTPATIEN INC T
--- OUTSIDE RECORDS SUMMARY | 2017-03-30 15:58 | External Medical Summary Rpt ---
Demographics Preferred Language Hungarian Marital Status Unknown Protestant Affiliation Unknown Race Unknown Ethnic Group Unknown Author Author , MARIA ELENA ARREDONDO Address Unknown Phone maria Immunization Unable to retrieve immunization data due to connection failure with Immunization Registry. Please try again later.
--- NOTE | 2017-03-30 16:03 | [facility] Report ---
History of Present Issue Date/Time Seen by Provider 03/30/17 1603 Visit Reason Pt arrived:Walked Presenting Problem:BOTH EARS AND THROAT PAIN X 2 DAYS Location if Accident: Onset of symptoms date/time:/ or onset unknown for:MEDICAL HX UNKNOWN Have you (or family members/close friends) recently traveled outside the [place]? N If Yes, where/when: Have you had exposure to infectious disease within the past month? TB? Other? Specify: c/o bilateral ear and throat pain starting yesterday. Intermittent popping and cracking in bilateral ears. Pressure at times. Reporting throat "extremely raw" feeling. Worse at night and first thing in the morning. No known sick contacts. Hasn't taken or tried anything for symptoms. No known fevers. Source patient Exam Limitations no limitations ALLERGIES Coded Allergies: No Known Allergies (01/30/17) History Medical History General CAD? No Angina: No OR: No Hypertension? No Hyperlipidemia? No CHF? No DVT? No PE? No COPD? No Asthma? Yes Anemia? No GERD? No Gastric ulcers? No GI Bleed? No Hernia? No Thyroid Problems? No Hypothyroidism? No CVA? No Seizures? No Diabetes? No Renal Insuffiency? No UTI? Yes Stones? No BPH? No GB Disease: No Nephritic Syndrome? No Asplenia? No Hepatitis? No Sickle Cell Disease? No Arthritis? No Migraines? No Cataracts? No Glaucoma? No MRSA? No HIV? No TB? No Anxiety? No Depression? No Cancer? No More? No Immunization HX DT/Tetanus 1-4 YRS Flu Refused Pneumonia Never Had Surgical Hx Previous Surgery?Y TONSILLECTOMY Family History Family HX Diabetes Yes CAD Yes Hypertension Yes Hyperlipidemia Yes Cancer Yes TB No Social History Smoking Hx Smoker: Former Smoker Tobacco: No Packs/day < 1 Pack Alcohol Alcohol: No Review of Systems All Other Systems Reviewed and Negative Constitutional see HPI, denies chills, denies malaise Eyes denies drainage ENT see HPI. denies: ear discharge, nose discharge, nose congestion, throat swelling. Respiratory denies cough, denies shortness of breath Gastrointestinal denies no symptoms reported Musculoskeletal denies other (aches) Skin denies rash Psychiatric/Neurological denies headache Physical Exam Vital Signs Vital Signs Date Time Temp Pulse Resp B/P Pulse O2 O2 Flow FiO2 Ox Delivery Rate 03/30 1553 97.8 67 20 105/73 98 General Appearance normal appearance, no apparent distress Eye Exam - bilateral eye normal exam Ear, Nose, Throat clear PND, mild cobblestoning, normal nares, jordan EACs normal, jordan TM intact, pearly parker, bulging slightly, clear fluid bubbles present behind TMs Neck normal inspection, supple, full range of motion, mild tenderness consistent w/ location of eustachian tubes Respiratory Status No: respiratory distress, productive cough, non productive cough. Lung Sounds anterior: lungs clear. posterior: lungs clear. bilateral: lungs clear. Cardiovascular regular rate/rhythm, no peripheral edema, no murmur Neurologic alert, no motor/sensory deficits, oriented x 3 Mental status normal mood/affect Skin normal color, warm/dry Lymphatic no adenopathy Medical Decision Making LABS/Meds/Orders Pt receiving controlled substance in ED? No Results/Orders Laboratory Tests 03/30/17 1450: Group A Strep Screen NOT DETECTED Orders Procedure Date/time Status [facility] STREP SCREEN 03/30 1558 Complete Departure Departure Time of Disposition 1620 Disposition DC Home or Self Care(routine) Clinical Impression Primary Impression: Eustachian tube dysfunction Qualifiers: Laterality: bilateral Qualified Code: H69.83 - Other specified disorders of Eustachian tube, bilateral Condition STABLE Referrals NO REFERRAL Follow up IMMEDIATELY for new or worsening symptoms OR no noticeable improvement over the next 48-72 hours. 911 for difficulty breathing or swallowing. Patient Instructions DI for Eustachian Tube Dysfunction-Adult Additional Instructions * No sign of bacterial infection. Likely viral but can also be due to allergies. Virus can take 7-14 days to run their course. Both are typically treated the same way. * Monitor Temp. FU for fever. * Encourage fluids, water, gatorade, powerade, pedialyte if /toddler/child * warm salt water gargles * warm fluids * sore throat lozenges * sleep elevated * humidifier/vaporizer * * Your throat swab was sent for culture. Those results are typically sent to your primary care. Be sure to follow up in 2-3 days if no improvement so they can review those results and treat if necessary. If you don't have primary care, I recommend you get one but in the mean time, you will have to return to a walk in clinic. Follow up IMMEDIATELY for new or worsening symptoms OR no noticeable improvement over the next 48-72 hours. 911 for difficulty breathing or swallowing. Discharge Counseling Counseled pt/family regarding diagnosis, test results, medications/RX, home care, follow up needs Prescriptions Current Visit Scripts Fluticasone Propionate (Flonase 50 Mcg Nasal [place]) 2 SPRAY NA DAILY #1 BOT Loratadine (Claritin 10MG) 10 MG PO DAILY #30 TAB at 5012
[2017-03-30] MEDS ORDERED: CLARITIN 10MG T10 MG PO (16:23)
[2017-03-30] MEDS ORDERED: FLONASE 50 MCG16 GM (16:23)
[2017-03-30 16:31] VITALS: BP 105/73
== END 2017-03-30 16:31 | disposition home or self-care (01) ==
LOC: UTC 15:49
DX: H69.83 Other specified disorders of Eustachian tube, bilateral (principal)